=== PATIENT | female | born 1975 | race Two or more races ===

== ENCOUNTER 2023-03-26 16:58 | Emergency (ER) | payer MEDICAID ==
[~2023-03-26] VITALS: Ht 172.7 cm; Wt 74.0 kg
[2023-03-26 18:23] LABS: BASOPHILS % (AUTO) 0.5 % (0-1); EOSINOPHILS % (AUTO) 0.7 % (0-6); HEMATOCRIT 36.2 % (35.0-45.0); HEMOGLOBIN 12.3 g/dl (12.0-16.0); LYMPHOCYTES # (AUTO) 1.3 X10'3 (1.1-4.8); LYMPHOCYTES % (AUTO) 17.7 % (21-51); MEAN CORPUSCULAR HEMOGLOBIN 30.2 PG (27.0-31.0); MEAN CORPUSCULAR HGB CONC 34.1 g/dL (33.0-36.5); MEAN CORPUSCULAR VOLUME 88.5 FL (78-98); MEAN PLATELET VOLUME 7.9 FL (7.4-10.4); MONOCYTES # (AUTO) 0.5 X10'3 (0-0.9); MONOCYTES % (AUTO) 6.8 % (2-12); NEUTROPHILS # (AUTO) 5.6 X10'3 (1.8-7.7); NEUTROPHILS % (AUTO) 74.3 % (42-75); PLATELET COUNT 205 X10'3 (140-440); RED BLOOD COUNT 4.08 X10'6 (4.20-5.60); WHITE BLOOD COUNT 7.6 X10'3 (4.5-11.0)
[2023-03-26 19:20] LABS: ALANINE AMINOTRANSFERASE 17 U/L (12-78); ALBUMIN/GLOBULIN RATIO 0.7 (1.1-1.5); ALKALINE PHOSPHATASE 77 IU/L (46-116); ANION GAP 8 (8-16); ASPARTATE AMINO TRANSFERASE 10 U/L (10-37); BILIRUBIN,TOTAL 0.6 MG/DL (0.1-1.0); BLOOD UREA NITROGEN 19 MG/DL (7-18); BUN/CREATININE RATIO 17.9 (10.0-20.0); CALCIUM 8.9 MG/DL (8.5-10.1); CHLORIDE 102 MMOL/L (99-107); CREATININE 1.06 MG/DL (0.40-0.90); GLUCOSE 114 MG/DL (70-104); POTASSIUM 3.5 MMOL/L (3.5-5.1); SODIUM 137 MMOL/L (135-145); TOTAL CARBON DIOXIDE 27.1 MMOL/L (24-32); TOTAL PROTEIN 7.4 G/DL (6.4-8.2); eCRCL 65 ML/MIN; eGFR 55 ML/MIN
[2023-03-26 19:35] LABS: PRO BRAIN NATRIURETIC PEPTIDE 44 PG/ML (0-125)
[2023-03-26 22:46] VITALS: TEMP 98.1
[2023-03-26 22:52] LABS: PROTHROMBIN TIME 10.3 SECONDS (9.0-12.0)
[2023-03-26] MEDS ORDERED: ibuprofen tablet 400 MG TABLET PO ONE (23:50)
[2023-03-26] MEDS ORDERED: acetaminophen 325mg tablet PO ONE (23:50)
[2023-03-27 00:02] LABS: D-DIMER 5.54 MG/L FEU (0-0.50)
[2023-03-27] MEDS ORDERED: iohexol 350MG/ML 100ml bottle IV ONE (00:07)
[2023-03-27] MEDS ORDERED: rivaroxaban 15mg tablet PO STA (01:34)
[2023-03-27 02:17] LABS: URINE HCG NEGATIVE (NEG)
[2023-03-27] MEDS ORDERED: RIVA15TA PO (02:22)
[2023-03-27 03:10] VITALS: BP 118/60; PULSE 70; RESP 16; O2SAT 98
== END 2023-03-27 03:11 | disposition home or self-care (01) ==
LOC: ER 17:02
DX: I26.99 Other pulmonary embolism without acute cor pulmonale (principal); I82.492 Acute embolism and thrombosis of other specified deep vein of left lower extremity
CPT/HCPCS: 36415; 71045; 71275; 80053; 81025; 83880; 84484; 85025; 85379; 85610; 93005; 93971; 99285; J3490; Q9967

== ENCOUNTER 2023-07-13 12:47 | Outpatient (CLI) | payer MEDICAID ==
[~2023-07-13 12:47] MED LIST: RIVA15TA PO
== END 2023-07-13 23:59 | disposition home or self-care (01) ==
LOC: RAD 12:47
PROVIDERS: ATTEND Physician Assistant
DX: M53.3 Sacrococcygeal disorders, not elsewhere classified (principal)
CPT/HCPCS: 72110

== ENCOUNTER 2024-01-30 19:46 | Emergency (ER) | payer MEDICAID ==
[~2024-01-30] VITALS: Ht 170.2 cm; Wt 75.9 kg
[2024-01-30 20:43] VITALS: BP 120/72; PULSE 90; RESP 18; TEMP 98.6; O2SAT 99
== END 2024-01-30 20:46 | disposition home or self-care (01) ==
LOC: ER 19:47
DX: T19.2XXA Foreign body in vulva and vagina, initial encounter (principal); Z79.899 Other long term (current) drug therapy; W44.8XXA Other foreign body entering into or through a natural orifice, initial encounter; Y93.89 Activity, other specified; Y92.89 Other specified places as the place of occurrence of the external cause; Y99.8 Other external cause status
CPT/HCPCS: 99284